=== PATIENT | male | born 1970 | race Caucasian/White ===

== ENCOUNTER 2020-11-14 10:37 | Emergency (ER) | payer BC, SELFPAY ==
[2020-11-14] VITALS (28 sets, daily range): BP systolic 134–185; BP diastolic 86–106; PULSE 75–115; RESP 11–24; TEMP 36.6; O2SAT 98–100
--- NOTE | 2020-11-14 10:30 | RT.EKG_ITS ---
APPROVED REPORT Exam: Resting ECG Patient Location: E HR:92 bpm ECG Measurements Heart Rate 92 AXIS [place] 141 P 64 QRSd 88 QRS -49 QT 362 T 41 QTc 447 Conclusion Sinus rhythm...normal P axis, V-rate 60- 99 Inferior infarct, old...Q >35mS, II III aVF I have reviewed and interpreted ECG and agree with software generated interpretation.
--- NOTE | 2020-11-14 10:49 | ED.GENADUL_ITS ---
Discharge Plan Disposition Patient Disposition: HOME Condition: Stable Discharge Details Clinical Impression: Atypical chest pain, Epigastric abdominal pain, Chronic steroid use Primary Care Provider: Unknown,Unknown ED Provider: Cassidy Jones Meds and New Rx's Prescriptions: Continued meloxicam 15 mg Tablet 15 mg PO DAILY RF: 0 sulfamethoxazole-trimethoprim 800-160 mg Tablet 1 tab PO BID RF: 0 cefuroxime axetil 500 mg Tablet 500 mg PO BID RF: 0 atovaquone 750 mg/5 mL Suspension PO BID RF: 0 hydrocortisone 5 mg Capsule, Sprinkle 5 mg PO RF: 0 Discharge Instructions Instructions: Chest Pain (ED), Epigastric Pain (ED) Additional Instructions: Drink plenty of fluids and get plenty of rest. Continue all of your medications as directed. Call your primary care doctor and infectious disease doctor tomorrow to schedule follow-up appointment for reevaluation. Return immediately to the emergency department if you develop any worsening or new concerning symptoms. Discharge Data Discharge Date/Time-TO BE ENTERED AT DEPARTURE: 11/14/20 15:31 Discharge Physician: Cassidy Jones Medical Decision Making 50-year-old male with a history of Lyme disease, babesiosis, toxoplasmosis and adrenal insufficiency currently being treated with cefuroxime, Bactrim, atorvastatin and hydrocortisone by infectious disease in [place] presents for intermittent palpitations for the last few weeks, worsening episodes since last night and had a brief 5-second episode of lower chest and upper abdominal pain that started while sitting and eating. EKG on arrival notes a rate of 92, sinus with no acute ST-T wave ischemic findings. Patient appears anxious. Blood pressure hypertensive at 160s to 180s to 90s to 100s. Patient denies a known history of hypertension. History of presentation not consistent with ACS. Will obtain a cardiac work-up and CT chest and abdomen and pelvis. Suspect most likely medication reaction related to his steroids or antibiotics or possible anxiety. Also consider PE, dissection, GI etiology. Labs and imaging reviewed and unremarkable. Patient reassessed and he has no acute complaints. Discussed with patient that his symptoms could possibly be due to his underlying infectious diagnoses or medications. He is advised to follow-up with his primary care doctor and Lyme disease specialist for further evaluation and for consideration for referral to ophthalmology or neuro-ophthalmology due to his intermittent chronic eye complaints. Advised to follow up with the primary care doctor for re-evaluation. Usual and customary return precautions given prior to discharge. Medical Records Medical records reviewed: Yes I reviewed the patient's medical records. Imaging Data Radiologic Study: Radiologist's impression: CT Angiography Chest With Contrast Exam date and time: 11/14/2020 12:28 PM Age: 50 years old Clinical indication: Other: Epigastric abd pain, SOB, R/O pe, pneumonia, chf TECHNIQUE: Imaging protocol: Computed tomographic angiography of the chest with contrast. 3D rendering (Not supervised by radiologist): MIP and/or 3D reconstructed images were created by the technologist. Contrast material: OMNIPAQUE 350; Contrast volume: 100 ml; Contrast route: INTRAVENOUS (IV); COMPARISON: No relevant prior studies available. FINDINGS: Pulmonary arteries: Motion limited exam without large or central acute pulmonary embolism. Beyond the 3rd order branches the evaluation of pulmonary tree is more limited. Aorta: Mildly ectatic aorta without aortic aneurysm or dissection. Lungs: Mildly heterogeneous aeration of the lungs with dependent likely atelectasis but no dense consolidation. No worrisome mass or nodule. Pleural spaces: No pneumothorax or effusion. Heart: Heart size is borderline enlarged without significant pericardial or mediastinal fluid. Lymph nodes: No confluent lymphadenopathy. Bones/joints: No acute fracture. Soft tissues: Mild bilateral gynecomastia changes. No subcutaneous lesions. IMPRESSION: 1. No acute abnormality. 2. Borderline cardiomegaly. CT Angiography Abdomen With Contrast Exam date and time: 11/14/2020 12:28 PM Age: 50 years old Clinical indication: Other: Epigastric abd pain, SOB, R/O pe, pneumonia, chf TECHNIQUE: Imaging protocol: Computed tomographic angiography images of the abdomen with intravenous contrast material. 3D rendering (Not supervised by radiologist): MIP and/or 3D reconstructed images were created by the technologist. Contrast material: OMNIPAQUE 350; Contrast volume: 100 ml; Contrast route: INTRAVENOUS (IV); COMPARISON: No relevant prior studies available. FINDINGS: Aorta: No aortic aneurysm. No aortic dissection. Celiac trunk and mesenteric arteries: No occlusion or significant stenosis. Renal arteries: No occlusion or significant stenosis. Liver: Normal. No mass. Gallbladder and bile ducts: Normal. No calcified stones. No ductal dilation. Pancreas: Normal. No ductal dilation. Spleen: Normal. No splenomegaly. Adrenals: Normal. No mass. Kidneys and ureters: No renal or ureteral stones. Stomach and bowel: Sigmoid diverticuli without acute diverticulitis. No bowel obstruction. Lymph nodes: Unremarkable. No enlarged lymph nodes. Intraperitoneal space: Unremarkable. No free air. No significant fluid collection. Reproductive: Borderline prostate. Bladder: Distended urinary bladder. Bones/joints: Age-appropriate degenerative changes most pronounced at L5-S1. Central stenosis at L5-S1. Soft tissues: Small fatty umbilical hernia without bowel. Normal appendix. The inguinal rings are open with fat bilaterally. IMPRESSION: No acute abnormality. Lab Data Lab results reviewed: Yes I reviewed the patient's lab results. Labs: Laboratory Tests Range/Units 11/14/20 11/14/20 11/14/20 10:48 10:48 10:48 WBC (4.4-10.8) 10^3/uL 4.68 RBC (4.36-5.78) 10^6/uL 5.12 Hgb (13.5-17.5) g/dL 16.1 Hct (40.0-50.0) % 47.4 MCV (80-95) fL 92.6 MCH (27.0-33.0) pg 31.4 MCHC (32.0-36.0) % 34.0 RDW (11.8-14.1) % 12.4 Plt Count (130-400) 10^3/uL 229 MPV (8.0-11.0) fL 9.8 Immature Gran % 0.2 Neutrophils % 59.6 Lymphocytes % 28.0 Monocytes % 10.7 Eosinophils % 0.9 Basophils % 0.6 Nucleated RBC % % 0 Absolute Neutrophils (1.2-6.7) 10^3/uL 2.79 Absolute Lymphocytes (1.2-3.4) 10^3/uL 1.31 Absolute Monocytes (0.1-0.8) 10^3/uL 0.50 Absolute Eosinophils (0.0-0.7) 10^3/uL 0.04 Absolute Basophils (0.0-0.2) 10^3/uL 0.03 PT (9.3-11.0) sec 11.3 H INR (0.9-1.1) 1.1 APTT (21.0-27.5) sec 23.6 Sodium (136-145) mmol/L 136 Potassium (3.5-5.1) mmol/L 3.9 Chloride (98-107) mmol/L 102 Carbon Dioxide (21.0-32.0) mmol/L 25.8 Anion Gap (3-11) mmol/L 8.2 BUN (7-18) mg/dL 14 Creatinine (0.70-1.30) mg/dL 1.0 Estimated GFR/1.73 m2 (mL/min/1.73m2) >= 60.00 Glucose (74-106) mg/dL 129 H Calcium (8.5-10.1) mg/dL 9.1 Magnesium (1.8-2.4) mg/dL 1.8 Total Bilirubin (0.2-1.0) mg/dL 0.7 AST (15-37) U/L 32 ALT (16-63) U/L 55 Alkaline Phosphatase (46-116) U/L 105 Troponin I (<0.06) ng/mL < 0.05 Total Protein (6.4-8.2) g/dL 7.4 Albumin (3.4-5.0) g/dL 4.1 Lipase (73-393) U/L 119 TSH (0.36-3.74) uIU/mL Range/Units 11/14/20 11/14/20 10:48 14:15 WBC (4.4-10.8) 10^3/uL RBC (4.36-5.78) 10^6/uL Hgb (13.5-17.5) g/dL Hct (40.0-50.0) % MCV (80-95) fL MCH (27.0-33.0) pg MCHC (32.0-36.0) % RDW (11.8-14.1) % Plt Count (130-400) 10^3/uL MPV (8.0-11.0) fL Immature Gran % Neutrophils % Lymphocytes % Monocytes % Eosinophils % Basophils % Nucleated RBC % % Absolute Neutrophils (1.2-6.7) 10^3/uL Absolute Lymphocytes (1.2-3.4) 10^3/uL Absolute Monocytes (0.1-0.8) 10^3/uL Absolute Eosinophils (0.0-0.7) 10^3/uL Absolute Basophils (0.0-0.2) 10^3/uL PT (9.3-11.0) sec INR (0.9-1.1) APTT (21.0-27.5) sec Sodium (136-145) mmol/L Potassium (3.5-5.1) mmol/L Chloride (98-107) mmol/L Carbon Dioxide (21.0-32.0) mmol/L Anion Gap (3-11) mmol/L BUN (7-18) mg/dL Creatinine (0.70-1.30) mg/dL Estimated GFR/1.73 m2 (mL/min/1.73m2) Glucose (74-106) mg/dL Calcium (8.5-10.1) mg/dL Magnesium (1.8-2.4) mg/dL Total Bilirubin (0.2-1.0) mg/dL AST (15-37) U/L ALT (16-63) U/L Alkaline Phosphatase (46-116) U/L Troponin I (<0.06) ng/mL < 0.05 Total Protein (6.4-8.2) g/dL Albumin (3.4-5.0) g/dL Lipase (73-393) U/L TSH (0.36-3.74) uIU/mL 1.40 ECG Data Attestation: I personally reviewed and interpreted this ECG (s) as follows: Interpretation: #1 -- Rate of 92, sinus, no acute ST elevation or depression. Q waves noted in inferior leads. VA 141. QRS 88. QTc 447. #2 -- Rate of 80, sinus, Q waves. No STEMI. VA 140. QRS 89. QTc 432. HPI General Mode of arrival: ambulatory . Date/Time Provider Initiated Documentation: 11/14/20 10:37 . Limitations to Documentation: no limitations . Information obtained by: patient . HPI Narrative: Patient is a 50-year-old male with a history of chronic Lyme disease, babesiosis, toxoplasmosis and adrenal insufficiency currently being treated by infectious disease in [place] presents for palpitations since last night and a brief episode of lower chest and upper abdominal pain today. Patient states he has had intermittent palpitations and feeling of fast heart rate for the past few weeks. Patient sta ana today while he was sitting and eating he developed a sudden onset of sharp pain just below his sternum in his epigastrium that lasted approximately a few seconds and then resolved. He denies any radiation of the pain. He denies any pain at present. He states he felt shortness of breath during this episode. He states he has had intermittent feelings of nausea, dizziness, sensation of eye swelling, palpitations for the past few weeks. Patient states he has seen his primary care doctor and eye doctor and was told that his vision was normal. He was started on antibiotics for his Lyme disease last year. He states he was started on hydrocortisone for his adrenal insufficiency 3 weeks ago. Patient traveled here from [place] 2 days ago to stay at his house in [place]. He denies any fever, chills, cough, vomiting, diarrhea, recent known sick contacts. Related Data Home Medications Medication Instructions Recorded Confirmed atovaquone PO BID 11/14/20 cefuroxime axetil 500 mg PO BID 11/14/20 11/14/20 hydrocortisone 5 mg PO 11/14/20 meloxicam 15 mg PO DAILY 11/14/20 11/14/20 sulfamethoxazole-trimethoprim 1 tab PO BID 11/14/20 11/14/20 Allergies Allergy/AdvReac Type Severity Reaction Status Date / Time No Known Allergies Allergy Unverified 11/14/20 10:55 Review of Systems All systems reviewed & are unremarkable except as noted in HPI and below Constitutional Constitutional: Reports as per HPI, Denies chills and Denies fever(s) Eyes Eyes: Denies blurry vision ENT Ears, Nose, Mouth, and Throat: Reports dizziness, Denies sore throat and Denies throat swelling Cardiovascular Cardiovascular: Reports chest pain and Reports dyspnea Respiratory Respiratory: Denies cough and Reports dyspnea Gastrointestinal Gastrointestinal: Reports abdominal pain, Denies diarrhea and Denies vomiting Genitourinary Genitourinary: Denies hematuria and Denies dysuria Musculoskeletal Musculoskeletal: Denies back pain and Denies numbness Integumentary/Breasts Skin/Breast: Denies lesions and Denies rash Neurologic Neurologic: Reports dizziness, Denies localized weakness and Denies numbness Allergic/Immunologic Allergic/Immunologic: Denies throat swelling [facility] Medical History (Updated 11/14/20 @ 15:00 by Cassidy Jones DO) Adrenal insufficiency Babesiosis Lyme disease Toxoplasmosis Surgical History (Updated 11/14/20 @ 11:54 by Cassidy Jones DO) History of left knee surgery Social History Smoking/Tobacco Use Status: Unknown Smoking risk assessment performed?: Yes Alcohol Intake: current Alcohol Intake frequency: a few times a month Substance use type: does not use Do you feel safe in your relationship?: Yes Exam Const General: cooperative, healthy appearing and anxious Orientation: alert, awake and oriented x3 HENMT Head: normal to inspection Face and sinus: normal facial exam Eyes General: appearance normal, both eyes and all related structures EOM: EOM intact bilaterally Neck Neck: normal visual inspection and No submandibular swelling Lymphatic: no lymphadenopathy noted Chest Chest: normal inspection of the chest and no tenderness Resp Effort & Inspection: normal respiratory effort and able to speak in complete sentences Auscultation: clear to auscultation bilaterally Cardio Rate: regular rate Rhythm: regular rhythm GI Inspection: normal to inspection Palpation: soft, not firm, not rigid and nontender Auscultation: normal bowel sounds Skin General skin exam: no rashes or lesions noted Neuro General: patient alert, patient awake and patient oriented x3 Cognition: normal cognition Speech: speech normal Motor: muscle tone normal throughout Sensory Exam: no sensory deficits noted Extrem General: normal to inspection, full ROM, capillary refill normal, no calf tenderness bilaterally and no edema Psych Appearance: grossly normal Mental Status: mental status grossly normal Speech and Movement: speech and movement normal Affect: anxious affect
[2020-11-14 11:14] LABS: Abs Immature Grans 0.01 10^3/uL (0.0-0.06); Absolute Basophil Count 0.03 10^3/uL (0.0-0.2); Absolute Eosinophil Count 0.04 10^3/uL (0.0-0.7); Absolute Lymphocyte Count 1.31 10^3/uL (1.2-3.4); Absolute Neutrophil Count 2.79 10^3/uL (1.2-6.7); Basophils % 0.6; Eosinophils % 0.9; HCT 47.4 % (40.0-50.0); HGB 16.1 g/dL (13.5-17.5); Immature Grans % 0.2; MCH 31.4 pg (27.0-33.0); MCV 92.6 fL (80-95); MPV 9.8 fL (8.0-11.0); Monocytes % 10.7; Neutrophils % 59.6; Nucleated RBC 0 %; Platelet Count 229 10^3/uL (130-400); RBC 5.12 10^6/uL (4.36-5.78); RDW 12.4 % (11.8-14.1); RDW-SD 42.7 fL; WBC 4.68 10^3/uL (4.4-10.8)
[2020-11-14 11:26] LABS: INR 1.1 (0.9-1.1); PTT Activated 23.6 sec (21.0-27.5); Prothrombin Time 11.3 sec (9.3-11.0)
[2020-11-14 11:29] LABS: ALT 55 U/L (16-63); AST 32 U/L (15-37); Albumin 4.1 g/dL (3.4-5.0); Alkaline Phosphatase 105 U/L (46-116); Anion Gap 8.2 mmol/L (3-11); BUN 14 mg/dL (7-18); Bilirubin, Total 0.7 mg/dL (0.2-1.0); CO2 25.8 mmol/L (21.0-32.0); Calcium 9.1 mg/dL (8.5-10.1); Chloride 102 mmol/L (98-107); Glucose 129 mg/dL (74-106); Lipase 119 U/L (73-393); Magnesium 1.8 mg/dL (1.8-2.4); Potassium 3.9 mmol/L (3.5-5.1); Sodium 136 mmol/L (136-145); Total Protein 7.4 g/dL (6.4-8.2); Troponin I < 0.05 ng/mL (<0.06)
--- NOTE | 2020-11-14 11:34 | DI.CT_ITS ---
EXAM: CT CHEST PE ABD PELVIS W CLINICAL HISTORY: epigastric abd pain, sob, r/o PE, pneumonia, chf. TECHNIQUE: Imaging Protocol: Axial computed tomography images with coronal and sagittal reformatted images were created and reviewed CONTRAST MATERIAL: Intravenous: Omnipaque 350 Contrast volume:structured data in ml Oral: yes / no COMPARISON: No exams were available for comparison FINDINGS: CHEST: The exam is somewhat limited due to respiratory motion. Pulmonary arteries: No emboli are visualized. Small branch emboli are not excluded due to motion. Tracheobronchial tree: Patent where visualized. Mediastinum and Yusra: No dominant adenopathy or fluid collection. Pulmonary parenchyma: No consolidation or dominant measurable mass. No architectural distortion. Pleura: No effusion or pneumothorax. Lymph nodes: Within normal limits. Aorta: Thoracic portion non-dilated. No evidence of dissection or aneurysm. No significant calcifica tions. Heart: Borderline enlarged. No coronary artery calcification is seen. Bones: Minimal degenerative changes. ABDOMEN: Liver: Normal density. No measurable mass. Gallbladder and biliary tract: No radiodense calculus or dilation. Pancreas: Normal density, no abnormal calcifications or inflammatory process. Spleen: Normal. Kidneys: Normal size, contour and axis. No radiodense stones or obstructive uropathy. No masses seen. Adrenal glands: No masses seen. Aorta: Abdominal portion non-dilated. Lymph nodes: Within normal limits. PELVIS: Bladder: Symmetric distention, no gross wall thickening. Bowel: Normal appendix. Sigmoid diverticulosis. No evidence of diverticulitis or colitis. No obstr uction or bowel wall thickening. Peritoneal cavity: No ascites, collection or mesenteric inflammatory response. Bones: Degenerative changes in the lumbar spine greatest at L5-S1. Reproductive organs: Within normal limits. Soft tissues: Small fatty containing umbilical hernia. Small fatty containing inguinal hernias. IMPRESSION: No acute abnormality is seen in the chest abdomen or pelvis. RADIATION DOSE DELIVERED: 1,321.18mGy.cm Total DLP DATA REPOSITORY: All CT scans at this facility are submitted to the National Radiology Data Registry (NRDR) Dose Index Registry (DIR) with the [employer] (A[employer]). RADIATION OPTIMIZATION: All CT scans at this facility use at least one of these dose optimization te chniques: automated exposure control; mA and/or kV adjustment per patient size (includes targeted exa ms where dose is matched to clinical indication); or iterative reconstruction.
[2020-11-14] MEDS: Normal Saline 1,000 ML 1000 ML IV (11:49)
[2020-11-14] MEDS: Omnipaque 350 MG/ML 100 ML BTL IJ (12:26)
[2020-11-14] MEDS: Normal Saline - Diluent 50 ML VIAL IV (12:26)
[2020-11-14] MEDS: Normal Saline Flush 10 ML SYR IVP (12:27)
--- NOTE | 2020-11-14 13:11 | DI.VRAD_ITS ---
PROCEDURE INFORMATION: Exam: CT Angiography Chest With Contrast Exam date and time: 11/14/2020 12:28 PM Age: 50 years old Clinical indication: Other: Epigastric abd pain, SOB, R/O pe, pneumonia, chf TECHNIQUE: Imaging protocol: Computed tomographic angiography of the chest with contrast. 3D rendering (Not supervised by radiologist): MIP and/or 3D reconstructed images were created by the technologist. Contrast material: OMNIPAQUE 350; Contrast volume: 100 ml; Contrast route: INTRAVENOUS (IV); COMPARISON: No relevant prior studies available. FINDINGS: Pulmonary arteries: Motion limited exam without large or central acute pulmonary embolism. Beyond the 3rd order branches the evaluation of pulmonary tree is more limited. Aorta: Mildly ectatic aorta without aortic aneurysm or dissection. Lungs: Mildly heterogeneous aeration of the lungs with dependent likely atelectasis but no dense consolidation. No worrisome mass or nodule. Pleural spaces: No pneumothorax or effusion. Heart: Heart size is borderline enlarged without significant pericardial or mediastinal fluid. Lymph nodes: No confluent lymphadenopathy. Bones/joints: No acute fracture. Soft tissues: Mild bilateral gynecomastia changes. No subcutaneous lesions. IMPRESSION: 1. No acute abnormality. 2. Borderline cardiomegaly. PROCEDURE INFORMATION: Exam: CT Angiography Abdomen With Contrast Exam date and time: 11/14/2020 12:28 PM Age: 50 years old Clinical indication: Other: Epigastric abd pain, SOB, R/O pe, pneumonia, chf TECHNIQUE: Imaging protocol: Computed tomographic angiography images of the abdomen with intravenous contrast material. 3D rendering (Not supervised by radiologist): MIP and/or 3D reconstructed images were created by the technologist. Contrast material: OMNIPAQUE 350; Contrast volume: 100 ml; Contrast route: INTRAVENOUS (IV); COMPARISON: No relevant prior studies available. FINDINGS: Aorta: No aortic aneurysm. No aortic dissection. Celiac trunk and mesenteric arteries: No occlusion or significant stenosis. Renal arteries: No occlusion or significant stenosis. Liver: Normal. No mass. Gallbladder and bile ducts: Normal. No calcified stones. No ductal dilation. Pancreas: Normal. No ductal dilation. Spleen: Normal. No splenomegaly. Adrenals: Normal. No mass. Kidneys and ureters: No renal or ureteral stones. Stomach and bowel: Sigmoid diverticuli without acute diverticulitis. No bowel obstruction. Lymph nodes: Unremarkable. No enlarged lymph nodes. Intraperitoneal space: Unremarkable. No free air. No significant fluid collection. Reproductive: Borderline prostate. Bladder: Distended urinary bladder. Bones/joints: Age-appropriate degenerative changes most pronounced at L5-S1. Central stenosis at L5-S1. Soft tissues: Small fatty umbilical hernia without bowel. Normal appendix. The inguinal rings are open with fat bilaterally. IMPRESSION: No acute abnormality. Dictated and Authenticated by: Vicente Smith MD. Ordering:TIA Benjamin MD
--- NOTE | 2020-11-14 14:00 | RT.EKG_ITS ---
APPROVED REPORT Exam: Resting ECG Patient Location: E HR:80 bpm ECG Measurements Heart Rate 80 AXIS [place] 140 P 0 QRSd 89 QRS -34 QT 373 T 20 QTc 432 Conclusion Sinus rhythm...normal P axis, V-rate 60- 99 Inferior infarct, old...Q >35mS, II III aVF I have reviewed and interpreted ECG and agree with software generated interpretation.
[2020-11-14 14:41] LABS: Troponin I < 0.05 ng/mL (<0.06)
== END 2020-11-14 15:31 | disposition home or self-care (01) ==
PROVIDERS: Emergency Provider Physician Assistant
DX: R07.89 Other chest pain (principal); R10.13 Epigastric pain; R00.2 Palpitations; R03.0 Elevated blood-pressure reading, without diagnosis of hypertension; Z79.52 Long term (current) use of systemic steroids
CPT/HCPCS: 36415; 71275; 74177; 80053; 83690; 93005; 96360; 99285; 83735; 84443; 84484; 85025; 85610; 85730; 93010; J3490

== ENCOUNTER 2022-12-23 22:06 | Emergency (ER) | payer BC, SELFPAY ==
[2022-12-23] VITALS (8 sets, daily range): BP systolic 149–161; BP diastolic 82–94; PULSE 82–101; RESP 18; TEMP 36.5; O2SAT 96–99
--- NOTE | 2022-12-23 22:15 | DI.RAD_ITS ---
Exam(s) XR CHEST 2V PA LATERAL EXAM: XR CHEST 2V PA LATERAL CLINICAL HISTORY: cough, r/o pneumonia TECHNIQUE: 2D digital imaging was performed. COMPARISON: No exams were available for comparison FINDINGS: HEART: Normal size. Aorta: Not dilated. PULMONARY VASCULATURE: Normal. LUNGS: Clear. PLEURAL SPACE: No pleural effusion or pneumothorax. BONE:Unremarkable for age. IMPRESSION: No acute abnormality. DATA REPOSITORY: RADIATION DOSE DELIVERED:
--- NOTE | 2022-12-23 22:15 | RT.EKG_ITS ---
APPROVED REPORT Exam: Resting ECG Reason for Exam: epigastric pain Patient Location: E HR:88 bpm ECG Measurements Heart Rate 88 AXIS AL 144 P 73 QRSd 94 QRS -39 QT 343 T 30 QTc 416 Conclusion Sinus rhythm...normal P axis, V-rate 60- 99 Left axis deviation...QRS axis (-30,-90) Physician: no stemi
[2022-12-23] MEDS: Normal Saline 1,000 ML 1000 ML IV (22:27)
[2022-12-23 22:30] LABS: Abs Immature Grans 0.02 10^3/uL (0.0-0.06); Absolute Basophil Count 0.04 10^3/uL (0.0-0.2); Absolute Eosinophil Count 0.07 10^3/uL (0.0-0.7); Absolute Lymphocyte Count 0.84 10^3/uL (1.2-3.4); Absolute Monocyte Count 1.04 10^3/uL (0.1-0.8); Absolute Neutrophil Count 7.13 10^3/uL (1.2-6.7); Basophils % 0.4; Eosinophils % 0.8; HCT 46.1 % (40.0-50.0); HGB 15.8 g/dL (13.5-17.5); Immature Grans % 0.2; Lymphocytes % 9.2; MCH 31.8 pg (27.0-33.0); MCHC 34.3 % (32.0-36.0); MCV 93 fL (80-95); MPV 9.7 fL (8.0-11.0); Monocytes % 11.4; Platelet Count 201 10^3/uL (130-400); RBC 4.97 10^6/uL (4.36-5.78); RDW 12.5 % (11.8-14.1); RDW-SD 43.3 fL; WBC 9.14 10^3/uL (4.4-10.8)
[2022-12-23] MEDS: Ondansetron 4 MG/2 ML VIAL IVP (22:39)
--- NOTE | 2022-12-23 22:40 | ED.GENADUL_ITS ---
Discharge Plan Disposition Patient Disposition: Home Condition: Good Discharge Details Chief Complaint: Abd Prob Clinical Impression: Pancreatitis [facility] Provider: [facility] Provider: Олег Boswell Home Meds and New Rx's Prescriptions: No Action meloxicam 15 mg Tablet 15 mg PO DAILY sulfamethoxazole-trimethoprim 800-160 mg Tablet 1 tab PO BID cefuroxime axetil 500 mg Tablet 500 mg PO BID atovaquone 750 mg/5 mL Suspension PO BID hydrocortisone 5 mg Capsule, Sprinkle 5 mg PO Discharge Instructions Instructions: Pancreatitis (ED) Additional Instructions: At this time your symptoms appear consistent with pancreatitis. There does not appear to be a clear indication from your current medications that you take what could be causing it. However, one of your herbal supplements or naturopathic medicines could potentially be causing a component of the pancreatitis just as any other pharmaceutical agent might. Please look into this further with your primary care provider. In the meantime please stick with a clear liquid diet of water for the next 24 to 48 hours, and then gradually transition to Jell-O, pudding and applesauce for the next 7 days total. Please avoid any alcohol. Take Tylenol or Motrin as needed for pain. Please follow-up closely with your primary care provider for reassessment of your symptoms. If you notice any worsening of your symptoms, or any new symptoms such as vomiting, diarrhea, fever, chills, shortness of breath, chest pain, numbness, weakness, or fainting , please return immediately to the emergency department for reevaluation. Please follow up with your primary care provider as soon as possible for reassessment and reevaluation. As always, it was a pleasure participating in your medical care today. Medical Decision Making 52-year-old male with a past medical history of adrenal insufficiency, chronic Lyme disease, who presents today for evaluation of epigastric discomfor t. Patient states that for the last 3 days he had congestion which initially was a mild cough, and this congestion as he describes it then settled into his epigastric region. He is nauseous but has had no vomiting. He denies any tearing or ripping sensation. He denies any chest discomfort, chest heaviness or tightness otherwise. He denies any exertional chest discomfort. He denies any complaints at this time otherwise. No significant improving or aggravating factors. No history of cardiac disease. Exam demonstrates a well-appearing male, mild epigastric achiness on palpation. Differential includes pancreatitis, less likely cardiac etiology or pulmonary etiology. Symptoms appear inconsistent with ACS. We will monitor closely, evaluate for concerning etiologies, and reassess. 1216 a.m. Laboratory work-up has returned and is normal. No significant white count bandemia or left shift. Lipase is elevated at greater than 375, suggestive of acute pancreatitis with the upper limit of normal being 77. On reassessment patient is feeling well. He has been able to tolerate p.o. He continues to show no signs of an acute surgical abdomen. Bilirubin normal. Macomb score is low. No signs of sepsis. At this time patient is notably stable, and is clinically appropriate for discharge home, recommended continued clear liquid diet for the next 48 to 72 hours with gradual transition to soft foods. Patient will be following up closely with his primary care provider. Discussed red flags for which to return. I have extensively reviewed the treatment plan and discharge instructions with the patient. I have addressed all patient concerns at this time. The patient was made aware of what symptoms to monitor for that would warrant a return to the emergency department. Discussed the plan with the patient, they demonstrate verbal understanding and agreement with our assessment and plan at this time. The documentation in this chart was dictated using [employer] dictation software. Please excuse any dictation errors. HPI General Date/Time Provider Initiated Documentation: 12/23/22 22:07 . HPI Narrative: 52-year-old male with a past medical history of adrenal insufficiency, chronic Lyme disease, who presents today for evaluation of epigastric disc omfort. Patient states that for the last 3 days he had congestion which initially was a mild cough, and this congestion as he describes it then settled into his epigastric region. He is nauseous but has had no vomiting. He denies any tearing or ripping sensation. He denies any chest discomfort, chest heaviness or tightness otherwise. He denies any exertional chest discomfort. He denies any complaints at this time otherwise. No significant improving or aggravating factors. No history of cardiac disease. Related Data Home Medications Medication Instructions Recorded Confirmed atovaquone 750 mg/5 mL oral PO BID 11/14/20 suspension cefuroxime axetil 500 mg tablet 500 mg PO BID 11/14/20 11/14/20 hydrocortisone 5 mg sprinkle 5 mg PO 11/14/20 capsule meloxicam 15 mg tablet 15 mg PO DAILY 11/14/20 11/14/20 sulfamethoxazole 800 1 tab PO BID 11/14/20 11/14/20 mg-trimethoprim 160 mg tablet Allergies Allergy/AdvReac Type Severity Reaction Status Date / Time No Known Allergies Allergy Unverified 11/14/20 10:55 General Stated Complaint: Abd Prob STEFANI: 3 Review of Systems All systems reviewed & are unremarkable except as noted in HPI and below PFSH All Active Problems (Updated 12/24/22 @ 00:13 by Олег Boswell DO) Pancreatitis (Chronic) Medical History Adrenal insufficiency Babesiosis Lyme disease Toxoplasmosis Surgical History History of left knee surgery Social History Smoking/Tobacco Use Status: Never Smoking risk assessment performed?: Yes Alcohol Intake: current Alcohol Intake frequency: a few times a month Substance use type: does not use Do you feel safe in your relationship?: Yes Exam Narrative Exam Narrative: 1.Const: Well-nourished, Well-developed, appearing stated age 2.Eyes: PERRL, no conjunctival injection, and symmetrical lids. 3.ENT: Atraumatic external nose and ears. Moist MM. Neck: Symmetric, trachea midline, No thyromegaly. 4.CVS: +S1/S2, No murmurs or gallops. Peripheral pulses 2+ and equal in all extremities. Brisk capillary refill in all extremities. 5.RESP: Unlabored respiratory effort. Clear to auscultation bilaterally. No wheezes rales or rhonchi 6.GI: Soft, nondistended, no guarding or rebound. Mild epigastric achiness on palpation. Negative Jack sign, no pain to McBurney's point. 7.MSK: Normocephalic/Atraumatic, Extremities w/o deformity or ttp No cyanosis or clubbing, Normal movement of all extremities 8.Skin: Warm, Dry. No rashes or lesions. 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 Sensation grossly intact, no focal neurologic deficits. 10.Psych: (AAO) x3. Appropriate mood and affect Course Vital Signs Vital signs: Vital Signs Temperature 36.5 C 12/23/22 22:10 Pulse 101 H 12/23/22 22:10 Respiratory Rate 18 12/23/22 22:10 Blood Pressure 161/94 H 12/23/22 22:10 Pulse Oximetry 98 12/23/22 22:10 Temperature 36.5 C 12/23/22 22:10 Temperature Source Skin 12/23/22 22:10 Pulse 101 H 12/23/22 22:10 Respiratory Rate 18 12/23/22 22:10 Respiratory Effort Normal 12/23/22 22:15 Blood Pressure 161/94 H 12/23/22 22:10 Blood Pressure Position Sitting 12/23/22 22:10 Pulse Oximetry 98 12/23/22 22:10 Oxygen Delivery Method Room Air 12/23/22 22:10 Oxygen Flow Rate 0 12/23/22 22:10 Lab/Test Results Lab/Test Results: Laboratory Tests Range/Units 12/23/22 22:24 WBC (4.4-10.8) 10^3/uL 9.14 RBC (4.36-5.78) 10^6/uL 4.97 Hgb (13.5-17.5) g/dL 15.8 Hct (40.0-50.0) % 46.1 MCV (80-95) fL 93 MCH (27.0-33.0) pg 31.8 MCHC (32.0-36.0) % 34.3 RDW (11.8-14.1) % 12.5 Plt Count (130-400) 10^3/uL 201 MPV (8.0-11.0) fL 9.7 Immature Gran % 0.2 Neutrophils % 78.0 Lymphocytes % 9.2 Monocytes % 11.4 Eosinophils % 0.8 Basophils % 0.4 Nucleated RBC % (0.0-0.3) % 0.0 Absolute Neutrophils (1.2-6.7) 10^3/uL 7.13 H Absolute Lymphocytes (1.2-3.4) 10^3/uL 0.84 L Absolute Monocytes (0.1-0.8) 10^3/uL 1.04 H Absolute Eosinophils (0.0-0.7) 10^3/uL 0.07 Absolute Basophils (0.0-0.2) 10^3/uL 0.04
[2022-12-23 22:54] LABS: ALT 26 U/L (16-63); AST 22 U/L (15-37); Albumin 3.7 g/dL (3.4-5.0); Alkaline Phosphatase 92 U/L (46-116); Anion Gap 8.9 mmol/L (3-11); BUN 16 mg/dL (7-18); Bilirubin, Total 0.6 mg/dL (0.2-1.0); CO2 26.1 mmol/L (21.0-32.0); CREATININE 0.8 mg/dL (0.70-1.30); Calcium 9.1 mg/dL (8.5-10.1); Chloride 103 mmol/L (98-107); Estimated GFR 106.48 (mL/min/1.73m2); Glucose 117 mg/dL (74-106); Potassium 3.9 mmol/L (3.5-5.1); Sodium 138 mmol/L (136-145); Total Protein 7.2 g/dL (6.4-8.2); Troponin I < 50 ng/L (<or=60)
[2022-12-23 23:40] LABS: Lipase > 375 U/L (16-77)
--- NOTE | 2022-12-23 23:55 | DI.VRAD_ITS ---
PROCEDURE INFORMATION: Exam: XR Chest Exam date and time: 12/23/2022 11:10 PM Age: 52 years old Clinical indication: Pain; Chest pressure TECHNIQUE: Imaging protocol: Radiologic exam of the chest. Views: 2 views. COMPARISON: CT CHEST PE ABD PELVIS W 11/14/2020 12:35 PM FINDINGS: Lungs: The lungs are clear without infiltrate or edema. Pleural spaces: No pleural effusion. No pneumothorax. Heart/Mediastinum: The cardiac silhouette is normal in size. Bones/joints: No acute osseous abnormality. IMPRESSION: No acute findings. Dictated and Authenticated by: Ynes Thibodeaux MD. Ordering:ALON Denney MD
[2022-12-24] MEDS: ACETAMINOPHEN 1,000 MG/100 ML BTL 400 MG IVPB (00:04)
[2022-12-24] MEDS: Ketorolac 15 MG/ML VIAL IVP (00:05)
[2022-12-24] MEDS: Normal Saline 1,000 ML 1000 ML IV (00:05)
--- NOTE | 2022-12-25 08:22 | NUR.NOTE ---
Nursing Note: Accessed chart to determine orders for EKG and to determine whether or not one needs to be cancelled.
== END 2022-12-24 01:19 | disposition home or self-care (01) ==
PROVIDERS: Emergency Provider Student in an Organized Health Care Education/Training Program
DX: K85.90 Acute pancreatitis without necrosis or infection, unspecified (principal)
CPT/HCPCS: 80053; 83690; 93005; 96361; 96374; 96375; 99284; 71046; 84484; 85025; 93010; J0131; J1885; J2405